=== PATIENT | male | born 1955 | race Caucasian/White ===

== ENCOUNTER 2019-05-01 14:19 | Inpatient (IN) | payer OTHER ==
[~2019-05-01] VITALS: Ht 182.9 cm; Wt 104.3 kg
[2019-05-01] MEDS ORDERED: METF-960 PO (14:39)
[2019-05-01] MEDS ORDERED: SERT100T12 PO (14:42)
[2019-05-01] MEDS ORDERED: LISI-662 PO (14:42)
[2019-05-01] MEDS ORDERED: ALBU8HFA IH (14:42)
[2019-05-01 14:55] LABS: BASOPHILS % (AUTO) 1.4 % (0.0-2.0); EOSINOPHILS % (AUTO) 4.1 % (1.0-6.0); HEMATOCRIT 40.3 % (41-53); HEMOGLOBIN 14.2 g/dL (13.5-17.5); LYMPHOCYTES # (AUTO) 2.2 K/uL (1.0-4.8); LYMPHOCYTES % (AUTO) 23.4 % (22.0-44.0); MEAN CORPUSCULAR HEMOGLOBIN 31.1 pg (26.0-34.0); MEAN CORPUSCULAR HGB CONC 35.1 G/dL (31.0-37.0); MEAN CORPUSCULAR VOLUME 89 fL (80-100); MONOCYTES # (AUTO) 0.5 K/uL (0.1-1.0); MONOCYTES % (AUTO) 5.5 % (2.0-9.0); NEUTROPHILS # (AUTO) 6.3 K/uL (1.8-7.7); NEUTROPHILS % (AUTO) 65.6 % (40.0-70.0); PLATELET COUNT (AUTO) 327 K/uL (150-450); RED BLOOD CELL COUNT(AUTO) 4.54 MIL/uL (4.50-5.90); RED CELL DISTRIBUTION WIDTH 12.8 % (11.5-14.5)
[2019-05-01 15:11] LABS: ANION GAP 9 mmol/L (8-16); CALCIUM, TOTAL 8.8 mg/dL (8.8-10.5); CARBON DIOXIDE 29 mmol/L (22-29); CHLORIDE 100 mmol/L (98-107); CREATININE 0.93 mg/dL (0.60-1.30); GLOMERULAR FILTR. RATE CALC > 60 mL/min (>60); GLUCOSE,RANDOM 246 mg/dL (70-110); POTASSIUM 4.3 mmol/L (3.5-5.1); SODIUM SERUM 138 mmol/L (136-145); UREA NITROGEN, BLOOD 17 mg/dL (7-18)
[2019-05-01 15:17] LABS: ALANINE AMINOTRANSFERASE 19 U/L (12-78); ALBUMIN 3.8 g/dL (3.4-5.0); ALKALINE PHOSPHATASE 85 U/L (46-116); ASPARTATE AMINOTRANSFERASE 14 U/L (15-37); BILIRUBIN,TOTAL 0.6 mg/dL (0.1-1.0); TOTAL PROTEIN, SERUM 7.3 g/dL (6.4-8.2)
[2019-05-01] MEDS ORDERED: ZOLPIDEM TARTRATE 10 MG TABLET PO PRN (15:45)
[2019-05-01 20:05] LABS: APPEARANCE,URINE CLEAR (CLEAR); BILIRUBIN,URINE NEGATIVE (NEGATIVE); GLUCOSE, URINE (UA) >=1000 mg/dL (NEGATIVE); KETONES,URINE NEGATIVE (NEGATIVE); LEUKOCYTE ESTERASE ,URINE NEGATIVE (NEGATIVE); NITRATE,URINE NEGATIVE (NEGATIVE); OCCULT BLOOD,URINE NEGATIVE (NEGATIVE); PROTEIN,URINE TRACE (NEGATIVE); UROBILINOGEN,URINE 0.2 mg/dL (<=1.0)
[2019-05-01 20:11] LABS: AMPHET/METH SCREEN,URINE NEGATIVE (NEGATIVE); BARBITURATE SCREEN, URINE NEGATIVE (NEGATIVE); BENZODIAZEPINES SCREEN,URINE NEGATIVE (NEGATIVE); CANNABINOID SCREEN,URINE POSITIVE (NEGATIVE); COCAINE SCREEN,URINE NEGATIVE (NEGATIVE); METHADONE SCREEN, URINE NEGATIVE (NEGATIVE); OPIATE SCREEN,URINE NEGATIVE (NEGATIVE)
[2019-05-01 20:15] VITALS: BP 136/64
[2019-05-01 20:18] LABS: PHENCYCLIDINE SCREEN,URINE NEGATIVE (NEGATIVE)
[2019-05-01 20:26] LABS: BACTERIA,URINE None Seen /HPF (None Seen); RBC,URINE None Seen /HPF (0-2); SQUAMOUS EPITHELIAL CELL,UR Few /LPF (None Seen); WBC,URINE None Seen /HPF (0-5)
[2019-05-01] MEDS ORDERED: PNEUMOCOCCAL VACCINE POLYVALENT 0.5 ML VIAL [PPSV23] IM ONE (21:00)
[2019-05-02 06:49] LABS: CHOL/HDL RATIO 5.9 (4.2-7.3)
[2019-05-02 07:17] LABS: GLUCOMETER DEV NAME(LOC) 3E.C; GLUCOSE,POINT OF CARE 240 MG/DL (70-110)
[2019-05-02] MEDS ORDERED: MetFORMIN HCL 500 MG TABLET PO SCH (07:30)
[2019-05-02] MEDS: HALOPERIDOL 5 MG TABLET PO PRN ×2 (07:56→14:03)
[2019-05-02] MEDS: LORazepam 2 MG TABLET PO PRN ×2 (07:56→13:36)
[2019-05-02 09:36] VITALS: BP 132/61
[2019-05-02 12:36] LABS: GLUCOMETER DEV NAME(LOC) 3E.I; GLUCOSE,POINT OF CARE 190 MG/DL (70-110)
[2019-05-02] MEDS ORDERED: CloNIDine HCL 0.1 MG TABLET PO PRN (13:15)
[2019-05-02] MEDS ORDERED: LOPERAMIDE HCL 2 MG CAPSULE PO PRN (13:15)
[2019-05-02] MEDS ORDERED: DOCUSATE SODIUM 100 MG CAPSULE PO PRN (13:15)
[2019-05-02] MEDS ORDERED: MAGNESIUM HYDROXIDE SUSPENSION 30 ML UDCUP PO PRN (13:15)
[2019-05-02] MEDS ORDERED: MAG HYDROX/AL HYDROX/SIMETH ES 30 ML SUSPENSION UDCUP PO PRN (13:15)
[2019-05-02] MEDS ORDERED: ALBUTEROL SULFATE HFA 90 MCG/PUFF 8 GM INHALER IH PRN (13:15)
[2019-05-02] MEDS ORDERED: NICOTINE 14 MG/24 HOUR PATCH TD PRN (13:15)
[2019-05-02] MEDS ORDERED: GuaiFENesin/D-METHORPHAN [SUGAR-FREE] 200-20MG/10 ML SYRUP UDCUP PO PRN (13:15)
[2019-05-02] MEDS ORDERED: PETROLATUM,WHITE 28 GM JELLY TP PRN (13:15)
[2019-05-02] MEDS ORDERED: ACETAMINOPHEN 325 MG TABLET PO PRN (13:15)
[2019-05-02] MEDS ORDERED: ONDANSETRON HCL 4 MG TABLET PO PRN (13:15)
[2019-05-02] MEDS: SERTRALINE HCL 100 MG TABLET PO SCH (13:26)
[2019-05-02] MEDS: QUEtiapine FUMARATE 25 MG TABLET PO SCH (13:26)
[2019-05-02] MEDS: MetFORMIN HCL 500 MG TABLET PO SCH (16:51)
[2019-05-02 17:57] VITALS: BP 148/76
[2019-05-02] MEDS ORDERED: QUEtiapine FUMARATE 200 MG TABLET PO SCH (21:00)
[2019-05-02 21:36] LABS: GLUCOMETER DEV NAME(LOC) 3E.I; GLUCOSE,POINT OF CARE 150 MG/DL (70-110)
[2019-05-03 05:30] LABS: GLUCOMETER DEV NAME(LOC) 3EX.; GLUCOSE,POINT OF CARE 185 MG/DL (70-110)
[2019-05-03] MEDS: MetFORMIN HCL 500 MG TABLET PO SCH ×2 (06:41→17:23)
[2019-05-03 08:00] VITALS: BP 137/68
[2019-05-03] MEDS: QUEtiapine FUMARATE 25 MG TABLET PO SCH (08:34)
[2019-05-03] MEDS: LISINOPRIL 20 MG TABLET PO SCH (08:39)
[2019-05-03] MEDS: SERTRALINE HCL 100 MG TABLET PO SCH (08:40)
[2019-05-03] MEDS: LORazepam 2 MG TABLET PO PRN (11:20)
[2019-05-03 16:04] VITALS: BP 175/90
[2019-05-03] MEDS: IBUPROFEN 400 MG TABLET PO PRN (16:07)
[2019-05-03 16:16] LABS: GLUCOMETER DEV NAME(LOC) 3E.I; GLUCOSE,POINT OF CARE 155 MG/DL (70-110)
[2019-05-03 17:09] VITALS: BP 127/78
[2019-05-04 04:00] VITALS: BP 157/89
[2019-05-04] MEDS: LORazepam 2 MG TABLET PO PRN ×4 (04:11→17:18)
[2019-05-04] MEDS: IBUPROFEN 400 MG TABLET PO PRN ×2 (04:13→16:11)
[2019-05-04 05:36] LABS: GLUCOMETER DEV NAME(LOC) 3EX.; GLUCOSE,POINT OF CARE 193 MG/DL (70-110)
[2019-05-04] MEDS: MetFORMIN HCL 500 MG TABLET PO SCH ×2 (06:37→17:13)
[2019-05-04 08:43] VITALS: BP 145/88
[2019-05-04] MEDS: QUEtiapine FUMARATE 25 MG TABLET PO SCH (09:12)
[2019-05-04] MEDS: LISINOPRIL 20 MG TABLET PO SCH (09:12)
[2019-05-04] MEDS: SERTRALINE HCL 100 MG TABLET PO SCH (09:13)
[2019-05-04 16:08] VITALS: BP 149/81
[2019-05-04] MEDS: HALOPERIDOL 5 MG TABLET PO PRN (16:11)
[2019-05-04 16:19] LABS: GLUCOMETER DEV NAME(LOC) 3E.I; GLUCOSE,POINT OF CARE 206 MG/DL (70-110)
[2019-05-05 06:33] LABS: GLUCOMETER DEV NAME(LOC) 3EX.; GLUCOSE,POINT OF CARE 202 MG/DL (70-110)
[2019-05-05] MEDS: MetFORMIN HCL 500 MG TABLET PO SCH (06:48)
[2019-05-05 08:00] VITALS: BP 142/80
[2019-05-05] MEDS: QUEtiapine FUMARATE 25 MG TABLET PO SCH (09:00)
[2019-05-05] MEDS: LISINOPRIL 20 MG TABLET PO SCH (09:01)
[2019-05-05] MEDS: SERTRALINE HCL 100 MG TABLET PO SCH (09:02)
[2019-05-05] MEDS: IBUPROFEN 400 MG TABLET PO PRN (09:08)
[2019-05-05] MEDS ORDERED: QUET25TA PO (12:18)
[2019-05-05] MEDS: LORazepam 2 MG TABLET PO PRN (12:21)
[2019-05-05] MEDS ORDERED: AmLODIPine BESYLATE 5 MG TABLET PO SCH (15:45)
== END 2019-05-05 15:45 | disposition home or self-care (01) | DRG 885 ==
LOC: EMS 14:22 → 3EX 17:48
PROVIDERS: ADMIT Psychiatry & Neurology Child & Adolescent Psychiatry; ATTEND Psychiatry & Neurology Child & Adolescent Psychiatry
DX: F29 Unspecified psychosis not due to a substance or known physiological condition (principal); R45.851 Suicidal ideations; J45.909 Unspecified asthma, uncomplicated; I10 Essential (primary) hypertension; G89.29 Other chronic pain; E78.5 Hyperlipidemia, unspecified; E11.9 Type 2 diabetes mellitus without complications; M54.9 Dorsalgia, unspecified; F17.200 Nicotine dependence, unspecified, uncomplicated; E78.00 Pure hypercholesterolemia, unspecified; F32.9 Major depressive disorder, single episode, unspecified; F43.10 Post-traumatic stress disorder, unspecified; K21.9 Gastro-esophageal reflux disease without esophagitis; K59.00 Constipation, unspecified
CPT/HCPCS: G0378; G0480